=== PATIENT | male | born 1985 | race Caucasian/White ===

== ENCOUNTER 2016-10-27 14:01 | Emergency (ER) | payer OTHER ==
--- NOTE | 2016-10-27 15:04 | ED NURSING NOTES ---
Clinical Report - Nurses [facility] [address] [place] [address] 10/27/2016 14:03 Patient: MARIA L BEDOYA TRIAGE Triage time 14:00 Oct 27 2016. Acuity: LEVEL 3. Chief Complaint: (Afsgn-od-Vlsh with (L) shoulder pain, (R) Rib pain and puncture wounds on (R) Hand). Alert. PAULINE COMA SCORE: [place] Coma Scale: 15- eyes open spontaneously (4); best verbal response- oriented x 4 (5); best motor response- obeys commands (6). --14:26 Genaro Gunter R.N. 14:10/27/16. BP: 116/84. HR: 104. RR: 16. O2 saturation: 92% on room air. Temp: 98.9 F. --14:26 Genaro Gunter R.N. 14:10/27/16. Pain level now: 710. Additional comments: (L) Shoulder. --15:55 Genaro Gunter R.N. Weight: 63.5 kg estimated. Height/Length: 70 inches Estimated. BMI: 20.1. --14:23 Genaro Gunter R.N. Medications None. --14:18 Genaro Gunter R.N. Allergies No Known Drug Allergy. --14:18 Genaro Gunter R.N. History Historian: police and patient. Arrived in police custody. Primary physician (none). ( Butjz-uj-Ewcr in police custody pursued and bitten by a police dog. Also c/o anterior (R) rib pain, puncture wound(s) (R) hand from dog bite(s) and (L) Shoulder pain (pt states that he thinks that shoulder is dislocated.). This started today. Onset. (about 1 hour ago). Treatment PERFUSIONIST: None. SOCIAL HX: Heavy tobacco smoker (cigarette)- less than 1 pack per day. History of heavy drug use: heroin. No alcohol use. No infectious disease exposure. ABUSE ASSESSMENT: No report of abuse. FALL RISK ASSESSMENT: Fall risk assessment completed. No fall risk identified. NUTRITIONAL RISK ASSESSMENT: The nutritional risk assessment revealed no deficiencies. FUNCTIONAL ASSESSMENT: Functional assessment: no impairments noted. LEARNING NEEDS ASSESSMENT: The learning needs assessment revealed no barriers. SKIN INTEGRITY ASSESSMENT: Skin integrity risk assessment completed. No skin integrity risk identified. --14:26 Genaro Gunter R.N. PROBLEMS: Palpitations. Hepatitis. Substance Abuse. Head Injury. Fall. Abrasion(s). Cervical Strain. Lifestyle / Substance Problems. --14:25 Genaro Gunter R.N. ADDITIONAL SURGERIES: Left shoulder surgery. Left shoulder surgery. --14:25 Genaro Gunter R.N. Interventions ID band on patient. To treatment room. --14:26 Genaro Gunter R.N. PHYSICAL ASSESSMENT Ambulatory to room. GENERAL / NEURO / PSYCH: Alert. Oriented X 4. Appears in pain. HEENT: No facial asymmetry noted. Mucous membranes are pink. RESPIRATORY: Right costochondral tenderness and right anterior chest wall tenderness. CVS: Cardiac rhythm: sinus tachycardia. GI / : Abdomen soft and nontender and normal bowel sounds. SKIN: Skin is warm and dry. Normal skin turgor. Skin not intact. --14:26 Genaro Gunter R.N. NURSING PROGRESS NOTES Patient gowned. Reassurance given to the patient. Patient identifiers checked. Call light placed in reach. Side rails up x 1. Bed placed in lowest position. Brakes of bed on. Patient ready for evaluation- chart flagged and ED physician notified. --14:27 Genaro Gunter R.N. Oxygen administered by nasal cannula at 2 liters. --14:28 Genaro Gunter R.N. ( cleaned pts. small abrasion on left hand with hibiclens and warm water.). --14:31 Erendira Simons ER Tech1 15:00 10/27/2016 TDAP IM 0.5 mL given. (Lot#: [id number], expiration date: 07/17/2018). Given in the right deltoid. Allergies verified and confirmed 5 rights. Vaccine information statement provided to the patient. --15:00 Genaro Gunter R.N. 14:45. Applied sterile bulky dressing consisting of 4x4 gauze, following the application of antibiotic ointment (bacitracin). Secured with kerlix. --15:50 Genaro Gunter R.N. 15:00. ( Xrays of chest and (L) Shoulder done in room.). --15:51 Genaro Gunter R.N. DISPOSITION / DISCHARGE 15:00 10/27/16. HR: 89. RR: 16. O2 saturation: 94% on room air. Temp: 98.7 F (oral). Pain level now: 12/27. Additional comments: (L) Shoulder. --15:43 Genaro Gunter R.N. Departure time: 1505. --15:44 Genaro Gunter R.N. 15:05. Condition at departure: improved. No learning barriers present. Discharge instructions provided and reviewed (police escort). Reviewed medication(s) (prescription given to police). Reviewed wound care instructions. Reviewed referral to family practice for followup. Verbalized understanding. Written instructions provided in Grenadian (given to police). Verbalized understanding (police). The patient was discharged by the physician. He was discharged home and accompanied by a police escort. He left the Emergency Department ambulatory and via police department vehicle. Driving (police escort). --15:48 Genaro Gunter R.N. 15:00 10/27/16. BP: 112/74. --15:52 Genaro Gunter R.N. 15:53 10/27/16. Pain level now: 12/27. --15:55 Genaro Gunter R.N. Locked/Released at 10/27/2016 15:55 by Genaro Gunter R.N.
--- NOTE | 2016-10-27 15:04 | ED CLINICAL REPORT ---
Clinical Report - Physicians/Mid Levels [facility] [address] [place] [address] 10/27/2016 14:03 Patient: MARIA L BEDOYA Time Seen: 14:18; initial patient contact. Arrived- In handcuffs. Police present. Historian- police. HISTORY OF PRESENT ILLNESS Location of injuries- (Ichjq-tm-Wevr in police custody pursued and bitten by a police dog. Also c/o anterior (R) rib pain, puncture wound(s) (R) hand from dog bite(s) and (L) Shoulder pain (pt states that he thinks that shoulder is dislocated.).). Chief Complaint: DOG BITE. The injury occurred just prior to arrival. The animal reportedly appeared well, is up to date on immunizations and can be observed for ten days. This was a "provoked" attack. No skin rash, itching or difficulty breathing. He has not had swelling. 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 REVIEW OF SYSTEMS All systems otherwise negative, except as recorded above. PAST HISTORY See nurses notes. Tetanus immunization status is up-to-date. Problems: Palpitations. Hepatitis. Substance Abuse. Head Injury. Fall. Laceration. Tetanus Status. Immunizations. Lifestyle / Substance Problems. Medications: None. Allergies: No Known Drug Allergy. SOCIAL HISTORY Smoker- current status unknown (cigarette). Alcohol use. History of drug use. ADDITIONAL NOTES The nursing notes have been reviewed with agreement regarding the chief complaint, HPI, ROS, PMH and patient medications and allergies. PHYSICAL EXAM Vital Signs: 10/27/2016 14:05 BP: 116/84. HR: 104. RR: 16. O2 saturation: 92%. Temp: 98.9 F. Have been reviewed. Appearance: Alert. Oriented X3. No acute distress. Head: Head normal on inspection. Occiput: superficial laceration of the central occiput. Eyes: Eyes normal inspection. ENT: Ears normal on inspection. Nose normal on inspection. Right ear: superficial laceration and small abrasion of the upper and posterior aspect of the right ear. Neck: Normal inspection. Neck non-tender. Painless ROM. CVS: Heart sounds normal. Pulses normal. Respiratory: Chest normal on inspection. Chest nontender. Back: Normal inspection. Extremities: Left shoulder: moderate tenderness and mild swelling located in the anterior aspect of the shoulder and humeral head. Limited ROM due to pain and swelling (diminished abduction, adduction, flexion, extension and external and internal rotation). Small joint effusion present. Neurovascular intact distally. Right wrist: small abrasion located in the radial aspect of the wrist. Neurovascular intact distally. (superficial abrasion to the base of the right thumb). Neuro: Oriented X 3. LABS, X-RAYS, AND EKG X-Rays: X-rays are normal. Chest X-ray negative. Left shoulder negative. The X-rays were independently viewed by me, interpreted by the radiologist and discussed with the radiologist. Chest X-ray: No acute disease. Normal lung markings present. Normal heart size. Mediastinum normal. Great vessels normal. No fracture. No bony lesion present. The X-rays were independently viewed by me, interpreted by the radiologist and contemporaneously by me and discussed with the radiologist. Lt Shoulder X-ray: (Name: Jayda Maria L M : 1985 MR#: [id number] Ordering Provider: JANET MARMOLEJO Exam(s): XR SHOULDER 2 OR MORE VW-LEFT Date of Exam: 10/27/2016 __ PROCEDURE: XR SHOULDER 2 OR MORE VW-LEFT INDICATION: TRAUMA/INJURY TECHNIQUE: Three views. COMPARISON: None. FINDINGS: There are moderate to severe arthritic changes of the left glenohumeral joint. There mild degenerative arthritic change of the left acromioclavicular joint. Osseous structures and joint spaces are otherwise normal. No evidence of fracture. IMPRESSION: 1. Moderate to severe arthritic change of the left glenohumeral joint. 2. Mild arthritic changes of the left acromioclavicular joint. 3. No evidence of fracture. Electronically Final signed by:Daron Villegas MD 10/27/2016 3:13:47 PM Technologist: MADELEINE). The X-rays were independently viewed by me, interpreted by the radiologist and discussed with the radiologist. PROGRESS AND PROCEDURES Course of Care: multiple very superficial abrasions to the right ear, scalp, posterior occiput with left anterior shoulder swelling. no repair is necessary, xray reviewed by radiology. Clear to book. Patient is stable. Physical exam findings are unchanged. The patient's symptoms are unchanged. CLINICAL IMPRESSION Multiple superficial dog bites to the scalp. Sprain of the left AC joint. Multiple superficial abrasions to the scalp. INSTRUCTIONS Apply ice for 10 minutes three times a day for three days. (CLEAR TO BOOK). OTC Medications: Motrin IB 200 mg (available over the counter): take 3 orally every 8 hours as needed for pain, stiffness or swelling Understanding of the discharge instructions verbalized by patient. (Electronically signed by Janet Marmolejo PA-C 10/28/2016 0:03)
--- NOTE | 2016-10-27 15:04 | ED NURSING NOTES ---
Clinical Report - Nurses [facility] [address] [place] [address] 10/27/2016 14:03 Patient: MARIA L BEDOYA TRIAGE Triage time 14:00 Oct 27 2016. Acuity: LEVEL 3. Chief Complaint: (Jrrih-mb-Jaym with (L) shoulder pain, (R) Rib pain and puncture wounds on (R) Hand). Alert. PAULINE COMA SCORE: [place]rober[place] Coma Scale: 15- eyes open spontaneously (4); best verbal response- oriented x 4 (5); best motor response- obeys commands (6). --14:26 Genaro Gunter R.N. 14:10/27/16. BP: 116/84. HR: 104. RR: 16. O2 saturation: 92% on room air. Temp: 98.9 F. --14:26 Genaro Gunter R.N. 14:10/27/16. Pain level now: 710. Additional comments: (L) Shoulder. --15:55 Genaro Gunter R.N. Weight: 63.5 kg estimated. Height/Length: 70 inches Estimated. BMI: 20.1. --14:23 Genaro Gunter R.N. Medications None. --14:18 Genaro Gunter R.N. Allergies No Known Drug Allergy. --14:18 Genaro Gunter R.N. History Historian: police and patient. Arrived in police custody. Primary physician (none). ( Uswgp-ok-Ncyk in police custody pursued and bitten by a police dog. Also c/o anterior (R) rib pain, puncture wound(s) (R) hand from dog bite(s) and (L) Shoulder pain (pt states that he thinks that shoulder is dislocated.). This started today. Onset. (about 1 hour ago). 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 SOCIAL HX: Heavy tobacco smoker (cigarette)- less than 1 pack per day. History of heavy drug use: heroin. No alcohol use. No infectious disease exposure. ABUSE ASSESSMENT: No report of abuse. FALL RISK ASSESSMENT: Fall risk assessment completed. No fall risk identified. NUTRITIONAL RISK ASSESSMENT: The nutritional risk assessment revealed no deficiencies. FUNCTIONAL ASSESSMENT: Functional assessment: no impairments noted. LEARNING NEEDS ASSESSMENT: The learning needs assessment revealed no barriers. SKIN INTEGRITY ASSESSMENT: Skin integrity risk assessment completed. No skin integrity risk identified. --14:26 Genaro Gunter R.N. PROBLEMS: Palpitations. Hepatitis. Substance Abuse. Head Injury. Fall. Abrasion(s). Cervical Strain. Lifestyle / Substance Problems. --14:25 Genaro Gunter R.N. ADDITIONAL SURGERIES: Left shoulder surgery. Left shoulder surgery. --14:25 Genaro Gunter R.N. Interventions ID band on patient. To treatment room. --14:26 Genaro Gunter R.N. PHYSICAL ASSESSMENT Ambulatory to room. GENERAL / NEURO / PSYCH: Alert. Oriented X 4. Appears in pain. HEENT: No facial asymmetry noted. Mucous membranes are pink. RESPIRATORY: Right costochondral tenderness and right anterior chest wall tenderness. CVS: Cardiac rhythm: sinus tachycardia. GI / : Abdomen soft and nontender and normal bowel sounds. SKIN: Skin is warm and dry. Normal skin turgor. Skin not intact. --14:26 Genaro Gunter R.N. NURSING PROGRESS NOTES Patient gowned. Reassurance given to the patient. Patient identifiers checked. Call light placed in reach. Side rails up x 1. Bed placed in lowest position. Brakes of bed on. Patient ready for evaluation- chart flagged and ED physician notified. --14:27 Genaro Gunter R.N. Oxygen administered by nasal cannula at 2 liters. --14:28 Genaro Gunter R.N. ( cleaned pts. small abrasion on left hand with hibiclens and warm water.). --14:31 Erendira Simons ER Tech1 15:00 10/27/2016 TDAP IM 0.5 mL given. (Lot#: [id number], expiration date: 07/17/2018). Given in the right deltoid. Allergies verified and confirmed 5 rights. Vaccine information statement provided to the patient. --15:00 Genaro Gunter R.N. 14:45. Applied sterile bulky dressing consisting of 4x4 gauze, following the application of antibiotic ointment (bacitracin). Secured with kerlix. --15:50 Genaro Gunter R.N. 15:00. ( Xrays of chest and (L) Shoulder done in room.). --15:51 Genaro Gunter R.N. DISPOSITION / DISCHARGE 15:00 10/27/16. HR: 89. RR: 16. O2 saturation: 94% on room air. Temp: 98.7 F (oral). Pain level now: 12/27. Additional comments: (L) Shoulder. --15:43 Genaro Gunter R.N. Departure time: 1505. --15:44 Genaro Gunter R.N. 15:05. Condition at departure: improved. No learning barriers present. Discharge instructions provided and reviewed (police escort). Reviewed medication(s) (prescription given to police). Reviewed wound care instructions. Reviewed referral to family practice for followup. Verbalized understanding. Written instructions provided in Namibian (given to police). Verbalized understanding (police). The patient was discharged by the physician. He was discharged home and accompanied by a police escort. He left the Emergency Department ambulatory and via police department vehicle. Driving (police escort). --15:48 Genaro Gunter R.N. 15:00 10/27/16. BP: 112/74. --15:52 Genaro Gunter R.N. 15:53 10/27/16. Pain level now: 12/27. --15:55 Genaro Gunter R.N. Locked/Released at 10/27/2016 15:55 by Genaro Gunter R.N.
--- NOTE | 2016-10-27 15:04 | ED ORDER SUMMARY ---
..... Patient: MARIA L BEDOYA OrderSheet [facility] VisitID: [id number] [address] [place] [address] 31y, M Registration Date/Time: 10/27/2016 ORDER SHEET Weight: 63.5 kg (estimated) Allergies: No Known Drug Allergy GENERAL ORDERS: Chest 1V Urgent (14:19 10/27/2016 Rodrick R.N. per protocol) (Ack 14:25 GAouse ER Tech1) (15:01 JRomanelli R.N.) Ribs Bilat Urgent (14:22 10/27/2016 JRomanelli R.N. verbal order read back to ABlanchette PA-C) (Ack 14:25 GAouse ER Tech1) (Cancelled: Other14:30 ABlanchette PA-C) Shoulder 2V or more Left Urgent (14:23 10/27/2016 omanapple R.N. verbal order read back to ABlanchette PA-C) (Ack 14:25 GAouse ER Tech1) (15:01 JRomanelli R.N.) MEDICATION ORDERS: Tdap IM 0.5 mL (NOW, per protocol) (14:59 10/27/2016 Aram R.N. verbal order read back to ABlanchette PA-C) (15:00 JRomanelli R.N.) IV FLUIDS: ORDER SHEET NOTES: [Electronically signed by Genaro Gunter R.N. (15:55 10/27/2016)] [Electronically signed by Filomena Baires PA-C (00:03 10/28/2016)] [Electronically locked/signed by Genaro Gunter R.N. (15:55 10/27/2016)]
--- NOTE | 2016-10-27 15:04 | ED ORDER SUMMARY ---
..... Patient: MARIA L BEDOYA OrderSheet [facility] VisitID: [id number] [address] [place] [address] 31y, M Registration Date/Time: 10/27/2016 ORDER SHEET Weight: 63.5 kg (estimated) Allergies: No Known Drug Allergy GENERAL ORDERS: Chest 1V Urgent (14:19 10/27/2016 Rodrick R.N. per protocol) (Ack 14:25 AKouse ER Tech1) (15:01 JRomanelli R.N.) Ribs Bilat Urgent (14:22 10/27/2016 JRomanelli R.N. verbal order read back to ABlanchette PA-C) (Ack 14:25 AKouse ER Tech1) (Cancelled: Other14:30 ABlanchette PA-C) Shoulder 2V or more Left Urgent (14:23 10/27/2016 omanapple R.N. verbal order read back to ABlanchette PA-C) (Ack 14:25 AKouse ER Tech1) (15:01 JRomanelli R.N.) MEDICATION ORDERS: Tdap IM 0.5 mL (NOW, per protocol) (14:59 10/27/2016 Aram R.N. verbal order read back to ABlanchette PA-C) (15:00 JRomanelli R.N.) IV FLUIDS: ORDER SHEET NOTES: [Electronically signed by Genaro Gunter R.N. (15:55 10/27/2016)] [Electronically signed by Filomena Baires PA-C (00:03 10/28/2016)] [Electronically locked/signed by Genaro Gunter R.N. (15:55 10/27/2016)]
--- NOTE | 2016-10-27 15:04 | ED CLINICAL REPORT ---
Clinical Report - Physicians/Mid Levels [facility] [address] [place] [address] 10/27/2016 14:03 Patient: MARIA L BEDOYA Time Seen: 14:18; initial patient contact. Arrived- In handcuffs. Police present. Historian- police. HISTORY OF PRESENT ILLNESS Location of injuries- (Ladoe-cs-Qvsb in police custody pursued and bitten by a police dog. Also c/o anterior (R) rib pain, puncture wound(s) (R) hand from dog bite(s) and (L) Shoulder pain (pt states that he thinks that shoulder is dislocated.).). Chief Complaint: DOG BITE. The injury occurred just prior to arrival. The animal reportedly appeared well, is up to date on immunizations and can be observed for ten days. This was a "provoked" attack. No skin rash, itching or difficulty breathing. He has not had swelling. 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 REVIEW OF SYSTEMS All systems otherwise negative, except as recorded above. PAST HISTORY See nurses notes. Tetanus immunization status is up-to-date. Problems: Palpitations. Hepatitis. Substance Abuse. Head Injury. Fall. Laceration. Tetanus Status. Immunizations. Lifestyle / Substance Problems. Medications: None. Allergies: No Known Drug Allergy. SOCIAL HISTORY Smoker- current status unknown (cigarette). Alcohol use. History of drug use. ADDITIONAL NOTES The nursing notes have been reviewed with agreement regarding the chief complaint, HPI, ROS, PMH and patient medications and allergies. PHYSICAL EXAM Vital Signs: 10/27/2016 14:05 BP: 116/84. HR: 104. RR: 16. O2 saturation: 92%. Temp: 98.9 F. Have been reviewed. Appearance: Alert. Oriented X3. No acute distress. Head: Head normal on inspection. Occiput: superficial laceration of the central occiput. Eyes: Eyes normal inspection. ENT: Ears normal on inspection. Nose normal on inspection. Right ear: superficial laceration and small abrasion of the upper and posterior aspect of the right ear. Neck: Normal inspection. Neck non-tender. Painless ROM. CVS: Heart sounds normal. Pulses normal. Respiratory: Chest normal on inspection. Chest nontender. Back: Normal inspection. Extremities: Left shoulder: moderate tenderness and mild swelling located in the anterior aspect of the shoulder and humeral head. Limited ROM due to pain and swelling (diminished abduction, adduction, flexion, extension and external and internal rotation). Small joint effusion present. Neurovascular intact distally. Right wrist: small abrasion located in the radial aspect of the wrist. Neurovascular intact distally. (superficial abrasion to the base of the right thumb). Neuro: Oriented X 3. LABS, X-RAYS, AND EKG X-Rays: X-rays are normal. Chest X-ray negative. Left shoulder negative. The X-rays were independently viewed by me, interpreted by the radiologist and discussed with the radiologist. Chest X-ray: No acute disease. Normal lung markings present. Normal heart size. Mediastinum normal. Great vessels normal. No fracture. No bony lesion present. The X-rays were independently viewed by me, interpreted by the radiologist and contemporaneously by me and discussed with the radiologist. Lt Shoulder X-ray: (Name: Jayda Maria L M : 1985 MR#: [id number] Ordering Provider: JANET MARMOLEJO Exam(s): XR SHOULDER 2 OR MORE VW-LEFT Date of Exam: 10/27/2016 __ PROCEDURE: XR SHOULDER 2 OR MORE VW-LEFT INDICATION: TRAUMA/INJURY TECHNIQUE: Three views. COMPARISON: None. FINDINGS: There are moderate to severe arthritic changes of the left glenohumeral joint. There mild degenerative arthritic change of the left acromioclavicular joint. Osseous structures and joint spaces are otherwise normal. No evidence of fracture. IMPRESSION: 1. Moderate to severe arthritic change of the left glenohumeral joint. 2. Mild arthritic changes of the left acromioclavicular joint. 3. No evidence of fracture. Electronically Final signed by:Daron Villegas MD 10/27/2016 3:13:47 PM Technologist: MADELEINE). The X-rays were independently viewed by me, interpreted by the radiologist and discussed with the radiologist. PROGRESS AND PROCEDURES Course of Care: multiple very superficial abrasions to the right ear, scalp, posterior occiput with left anterior shoulder swelling. no repair is necessary, xray reviewed by radiology. Clear to book. Patient is stable. Physical exam findings are unchanged. The patient's symptoms are unchanged. CLINICAL IMPRESSION Multiple superficial dog bites to the scalp. Sprain of the left AC joint. Multiple superficial abrasions to the scalp. INSTRUCTIONS Apply ice for 10 minutes three times a day for three days. (CLEAR TO BOOK). OTC Medications: Motrin IB 200 mg (available over the counter): take 3 orally every 8 hours as needed for pain, stiffness or swelling Understanding of the discharge instructions verbalized by patient. (Electronically signed by Janet Marmolejo PA-C 10/28/2016 0:03)
--- NOTE | 2016-10-27 15:10 | DIAGNOSTIC IMAGING REPORT ---
PROCEDURE: XR CHEST 1 VIEW INDICATION: SHORTNESS OF BREATH TECHNIQUE: Portable AP view (1435 hours). (Two images including one additional view). COMPARISON: None. FINDINGS: Lungs are clear. Heart and mediastinum are normal. Thorax is normal. IMPRESSION: 1. Negative chest.
--- NOTE | 2016-10-27 15:13 | DIAGNOSTIC IMAGING REPORT ---
PROCEDURE: XR SHOULDER 2 OR MORE VW-LEFT INDICATION: TRAUMA/INJURY TECHNIQUE: Three views. COMPARISON: None. FINDINGS: There are moderate to severe arthritic changes of the left glenohumeral joint. There mild degenerative arthritic change of the left acromioclavicular joint. Osseous structures and joint spaces are otherwise normal. No evidence of fracture. IMPRESSION: 1. Moderate to severe arthritic change of the left glenohumeral joint. 2. Mild arthritic changes of the left acromioclavicular joint. 3. No evidence of fracture.
--- NOTE | 2016-10-28 00:04 | ED MED RECONCILIATION SUMMARY ---
Patient: MARIA L BEDOYA Medication Reconciliation Report [facility] VisitID: [id number] [address] [place] [address] 31y, M Registration Date/Time: 10/27/2016 Weight: 63.5 kg Height/Length: 70 in. BMI: 20.1 ALLERGIES: No Known Drug Allergy The patient's Home Medications are listed below: NONE. The source(s) of the original Home Medication information: Not obtained. The following Medications were given to the patient in the Emergency Department: TDAP [IM] IM 0.5 mL, administered: 10/27/2016 3:00:00 PM The following Medications were prescribed to the patient: Motrin IB 200 mg (available over the counter): take 3 orally every 8 hours as needed for pain, stiffness or swelling -- Filomena Baires PA-C
--- NOTE | 2016-10-28 00:04 | ED DISCHARGE INSTRUCTIONS ---
Patient: MARIA L BEDOYA General Instructions [facility] VisitID: [id number] [place] [address] 31y, M Registration Date/Time: 10/27/2016 Multiple superficial dog bites to the scalp. Sprain of the left AC joint. Multiple superficial abrasions to the scalp. INSTRUCTIONS Apply ice for 10 minutes three times a day for three days. (CLEAR TO BOOK). OTC Medications: Motrin IB 200 mg (available over the counter): take 3 orally every 8 hours as needed for pain, stiffness or swelling Understanding of the discharge instructions verbalized by patient. ADDITIONAL INFORMATION Shoulder Sprain A sprain is a stretching or tearing of the ligaments that hold a joint together. A sprain may take up to six weeks to fully heal, depending on how severe it is. Moderate to severe shoulder sprains are treated with a sling or shoulder immobilizer. Minor sprains can be treated without any special support. Home care The following guidelines will help you care for your injury at home: If a sling was provided, leave it in place for the time advised by your doctor. If you are unsure how long to wear it, ask for advice. If the sling becomes loose, adjust it so that your forearm is level with the ground and the shoulder feels well supported. Apply an ice pack (ice cubes in a plastic bag, wrapped in a thin towel) over the injured area for 20 minutes every 12 hours the first day. Continue with ice packs 34 times a day for the next two days, then as needed for the relief of pain and swelling. You may use acetaminophen or ibuprofen to control pain, unless another pain medicine was prescribed.If you have chronic liver or kidney disease or ever had a stomach ulcer or GI bleeding, talk with your doctor before using these medicines. Shoulder joints become stiff if left in a sling for too long. Range of motion exercises should usually be started within the first ten days after injury. Consult your doctor on what type of exercises to do and how soon to start. Follow-up care Follow up with your doctor as directed. Any X-rays you had today dont show any broken bones, breaks, or fractures. Sometimes fractures dont show up on the first X-ray. Bruises and sprains can sometimes hurt as much as a fracture. These injuries can take time to heal completely. If your symptoms dont improve or they get worse, talk with your doctor. You may need a repeat X-ray. When to seek medical care Get prompt medical attention if any of the following occur: Increasing shoulder pain or arm swelling Fingers become cold, blue, numb, or tingly Large amount of bruising of the shoulder or upper arm You have been given the following additional information: Shoulder Sprain (Electronically signed by Filomena Baires PA-C 10/28/2016 0:03)
--- NOTE | 2016-10-28 00:04 | ED MAR SUMMARY ---
..... Medication Administration Record [facility] [address] [place] [address] Patient: MARIA L BEDOYA Visit ID: [id number] 31y, M Weight: 63.5 kg Height/Length: 70 in BMI: 20.1 ALLERGIES: No Known Drug Allergy Given 15:00 10/27/2016 Genaro Gunter R.N. Medication Administered: TDAP [IM], Dose: 0.5 mL IM. Medication Ordered: Tdap IM 0.5 mL (NOW, per protocol).
--- NOTE | 2016-10-28 00:04 | ED MAR SUMMARY ---
..... Medication Administration Record [facility] [address] [place] [address] Patient: MARIA L BEDOYA Visit ID: [id number] 31y, M Weight: 63.5 kg Height/Length: 70 in BMI: 20.1 ALLERGIES: No Known Drug Allergy Given 15:00 10/27/2016 Genaro Gunter R.N. Medication Administered: TDAP [IM], Dose: 0.5 mL IM. Medication Ordered: Tdap IM 0.5 mL (NOW, per protocol).
--- NOTE | 2016-10-28 00:04 | ED MED RECONCILIATION SUMMARY ---
Patient: MARIA L BEDOYA Medication Reconciliation Report [facility] VisitID: [id number] [address] [place] [address] 31y, M Registration Date/Time: 10/27/2016 Weight: 63.5 kg Height/Length: 70 in. BMI: 20.1 ALLERGIES: No Known Drug Allergy The patient's Home Medications are listed below: NONE. The source(s) of the original Home Medication information: Not obtained. The following Medications were given to the patient in the Emergency Department: TDAP [IM] IM 0.5 mL, administered: 10/27/2016 3:00:00 PM The following Medications were prescribed to the patient: Motrin IB 200 mg (available over the counter): take 3 orally every 8 hours as needed for pain, stiffness or swelling -- Filomena Baires PA-C
== END 2016-10-27 15:05 | disposition home or self-care (01) ==
LOC: ED SRH 14:01
DX: S00.07XA Other superficial bite of scalp, initial encounter (principal); S43.52XA Sprain of left acromioclavicular joint, initial encounter; S00.01XA Abrasion of scalp, initial encounter; W54.0XXA Bitten by dog, initial encounter; Y93.89 Activity, other specified; Y92.89 Other specified places as the place of occurrence of the external cause; Y99.9 Unspecified external cause status; Z23 Encounter for immunization